=== PATIENT | female | born 1965 | race Caucasian/White ===

== ENCOUNTER 2019-06-22 18:34 | Inpatient (IN) ==
[2019-06-22] MEDS ORDERED: *HR* Heparin 5,000 UNIT/ML VIAL IVP ONE (18:51)
[2019-06-22] MEDS ORDERED: Heparin 25,000 UNIT/250 ML D5W 25,000 UNIT/250 ML IV.SOLN IVC ONE (18:51)
[2019-06-22] MEDS ORDERED: *HR* Heparin 5,000 UNIT/ML VIAL IVP PRN ×2 (18:51)
[2019-06-22] MEDS ORDERED: *HR* Ticagrelor 90 MG TABLET ONE (18:51)
[2019-06-22] MEDS ORDERED: *HR* Ticagrelor 90 MG TABLET PO ONE (18:51)
[2019-06-22] MEDS ORDERED: *HR* Heparin 5,000 UNIT/ML VIAL ONE (18:51)
[2019-06-22] MEDS ORDERED: Morphine Sulfate 2 MG/ML SYRINGE IVP ONE (18:57)
[2019-06-22] MEDS ORDERED: Ondansetron 4 MG/2 ML VIAL IVP ONE (18:58)
[2019-06-22] MEDS ORDERED: Heparin 25,000 UNIT/250 ML D5W 25,000 UNIT/250 ML IV.SOLN IVC SCH (19:00)
[2019-06-22] MEDS ORDERED: ISOVUE-370 200 ML INFUS..BTL ONE ×2 (19:09→19:10)
[2019-06-22] MEDS ORDERED: *HR* Heparin 10,000 UNIT/10 ML VIAL ONE (19:09)
[2019-06-22] MEDS ORDERED: 0.9 % Sodium Chloride 1,000 ML ONE ×3 (19:09→19:20)
[2019-06-22] MEDS ORDERED: Heparin 1,000 UNITS/500 mL 500 ML ONE (19:09)
[2019-06-22] MEDS ORDERED: Nitroglycerin 1,000 MCG/10 ML VIAL IV ONE (19:10)
[2019-06-22 19:12] LABS: INR 0.9; Prothrombin Time 10.1 Seconds (9.4-12.1)
[2019-06-22 19:15] LABS: Activated Partial Thrombo Time 30.7 Seconds (26.0-36.0)
[2019-06-22 19:16] LABS: Heparin anti-factor XA UFH < 0.04 IU/mL (0.30-0.70)
[2019-06-22] MEDS ORDERED: Aspirin 81 MG TAB.CHEW ONE (19:20)
[2019-06-22 19:25] LABS: Basophils # 0.1 K/mcL (0.0-0.2); Basophils % 1.2 %; Eosinophils # 0.3 K/mcL (0.0-0.6); Eosinophils % 2.4 %; Hematocrit 46.7 % (35.3-44.9); Hemoglobin 15.1 g/dL (11.5-15.4); Immature Granulocytes % 0.3 % (0-4); Lymphocytes # 5.5 K/mcL (0.6-4.6); Lymphocytes % 47.9 %; Mean Corpuscular HGB Conc 32.3 g/dL (31.6-35.5); Mean Corpuscular Hemoglobin 29.4 pg (28.0-33.3); Mean Corpuscular Volume 90.9 fL (83.0-100.0); Mean Platelet Volume 11.6 fL (9.4-12.4); Monocytes # 0.8 K/mcL (0.0-1.3); Monocytes % 6.5 %; Neutrophils # 4.8 K/mcL (1.6-8.9); Platelet Count 243 K/mcL (140-400); Red Blood Count 5.14 M/mcL (3.82-4.97); Red Cell Distribution Width 13.2 % (11.5-14.5); Segmented Neutrophils % 41.7 %; White Blood Count 11.5 K/mcL (4.3-11.1)
[2019-06-22] MEDS ORDERED: Aspirin 81 MG TAB.CHEW PO ONE (19:27)
[2019-06-22] MEDS ORDERED: 0.9 % Sodium Chloride 1,000 ML IVC ONE (19:27)
[2019-06-22] MEDS ORDERED: *HR* Midazolam HCl 2 MG/2 ML VIAL ONE (19:37)
[2019-06-22] MEDS ORDERED: *HR* FentaNYL (PF) 100 MCG/2 ML VIAL ONE (19:38)
[2019-06-22] MEDS ORDERED: Tirofiban 12.5 MG/250ML 12.5 MG/250 ML BAG ONE (19:45)
[2019-06-22] MEDS ORDERED: *HR* Amiodarone 150 MG/3 ML VIAL IVPB ONE (19:58)
[2019-06-22 20:04] LABS: BUN/Creatinine Ratio 18 (6-26); Blood Urea Nitrogen 14 mg/dL (6-20); Calcium 9.6 mg/dL (8.6-10.3); Carbon Dioxide 25 mEq/L (23-29); Chloride 104 mEq/L (98-107); Glucose 127 mg/dL (70-105); Osmolality,Calculated 292 (280-300); Potassium 3.4 mEq/L (3.5-5.1); Sodium 140 mEq/L (136-145); Troponin I 0.26 ng/mL (< 0.04); eGFR For African Americans > 60 (> 60); eGFR For Non-African Americans > 60 (> 60)
[2019-06-22] MEDS ORDERED: Morphine Sulfate 2 MG/ML SYRINGE IVP PRN (20:23)
[2019-06-22] MEDS ORDERED: Ondansetron 4 MG/2 ML VIAL IVP PRN (20:23)
[2019-06-22] MEDS ORDERED: Tirofiban 12.5 MG/250ML 12.5 MG/250 ML BAG IVC SCH (20:30)
[2019-06-22] MEDS ORDERED: Perflutren Lipid Microsphere 1.3 ML in 0.9 % Sodium Chloride 8.7 ML IVP ONE (21:55)
[2019-06-22] MEDS ORDERED: *HR* Atropine Sulfate 1 MG/10 ML SYRINGE ONE (22:25)
[2019-06-23] MEDS: *HR* Ticagrelor 90 MG TABLET PO SCH ×2 (05:43→21:02)
[2019-06-23 06:42] LABS: Basophils # 0.1 K/mcL (0.0-0.2); Eosinophils # 0.1 K/mcL (0.0-0.6); Eosinophils % 0.9 %; Immature Granulocytes % 0.3 % (0-4); Lymphocytes % 26.4 %; Mean Corpuscular HGB Conc 32.6 g/dL (31.6-35.5); Mean Corpuscular Hemoglobin 29.4 pg (28.0-33.3); Mean Corpuscular Volume 90.3 fL (83.0-100.0); Mean Platelet Volume 11.4 fL (9.4-12.4); Monocytes % 8.7 %; Neutrophils # 7.2 K/mcL (1.6-8.9); Platelet Count 201 K/mcL (140-400); Red Blood Count 4.76 M/mcL (3.82-4.97); Red Cell Distribution Width 13.5 % (11.5-14.5); Segmented Neutrophils % 62.7 %; White Blood Count 11.4 K/mcL (4.3-11.1)
[2019-06-23 07:05] LABS: BUN/Creatinine Ratio 20 (6-26); Blood Urea Nitrogen 13 mg/dL (6-20); Calcium 8.8 mg/dL (8.6-10.3); Carbon Dioxide 22 mEq/L (23-29); Chloride 112 mEq/L (98-107); Cholesterol 161 mg/dL (< 200); Glucose 110 mg/dL (70-105); HDL Cholesterol 27 mg/dL (40-59); LDL Cholesterol,Calculated 89 mg/dL (0-99); Osmolality,Calculated 293 (280-300); Potassium 3.8 mEq/L (3.5-5.1); Sodium 141 mEq/L (136-145); Triglycerides 227 mg/dL (< 150); eGFR For African Americans > 60 (> 60); eGFR For Non-African Americans > 60 (> 60)
[2019-06-23] MEDS: Aspirin 81 MG TAB.CHEW PO SCH (09:18)
[2019-06-24] MEDS: Aspirin 81 MG TAB.CHEW PO SCH (07:56)
[2019-06-24] MEDS: *HR* Ticagrelor 90 MG TABLET PO SCH (07:56)
[2019-06-24 11:38] VITALS: BP 118/71
== END 2019-06-24 12:22 | disposition home or self-care (01) | DRG 247 ==
LOC: EMEROOARM 18:34 → ICNU 18:34
PROVIDERS: ADMIT Internal Medicine Cardiovascular Disease; ATTEND Internal Medicine Clinical Cardiac Electrophysiology